=== PATIENT | male | born 1995 | race Caucasian/White ===

== ENCOUNTER 2016-08-01 13:12 | Emergency (ER) | payer BC, MEDICAID, SELFPAY ==
[~2016-08-01] VITALS: Ht 170.2 cm; Wt 63.5 kg
[2016-08-01] MEDS ORDERED: diphenhydrAMINE INJ 50MG/ML VIAL (J1200) IV STA (13:51)
--- NOTE | 2016-08-01 13:55 | ED PDOC ---
Post-Departure Follow-Up Patient presents with sudden onset of "feeling like I have the flu". Believes he heard a pop in his head and neck preceding symptoms. Most likely migraine headache as there is family history of same. Will obtain CT head as this is new to patient. Will check orthostatics due to complaint of dizziness and weakness. Medicating headache with NS bolus, toradol, benadryl and reglan. Neuro examination non-focal and symptoms only mild at this time. JIL DUFF. [facility] Aug 01, 2016 13:55
[2016-08-01] MEDS ORDERED: KETOROLAC 30 MG/ML VIAL (J1885) IV ONE (14:00)
[2016-08-01] MEDS ORDERED: NS 1,000 ML IV ONE (14:00)
[2016-08-01] MEDS ORDERED: METOCLOPRAMIDE INJ 10MG/2ML VIAL (J2765) IV ONE (14:00)
--- NOTE | 2016-08-01 14:15 | REP ---
CT Head without contrast HISTORY: Headache COMPARISON: None There is no intraparenchymal hemorrhage, acute infarct, mass or midline shift. The ventricular system is normal in appearance. There is no extra cerebral collection. There is no fracture. The visualized sinuses are clear. IMPRESSION: There is no intracranial lesion. Signed by James Troncoso MD 08/01/2016 02:06 P
--- NOTE | 2016-08-01 14:15 | ED PDOC ---
Post-Departure Follow-Up Patient advised of head CT results. Currently resting comfortably, on the phone with his mother JIL DUFF. [facility] Aug 01, 2016 14:15
--- NOTE | 2016-08-01 15:19 | ED PDOC ---
Post-Departure Follow-Up Patient reassessed. States sleepy but feels better. Awaiting ride home. Advised of discharge plans and worrisome signs to return to the ED for. JIL DUFF. [facility] Aug 01, 2016 15:19
[2016-08-01 15:25] VITALS: BP 110/60
== END 2016-08-01 15:42 | disposition home or self-care (01) ==
LOC: M ED 13:42
DX: R51 Headache (principal); R11.0 Nausea; R42 Dizziness and giddiness; F41.9 Anxiety disorder, unspecified; F17.200 Nicotine dependence, unspecified, uncomplicated; Z86.69 Personal history of other diseases of the nervous system and sense organs; Z82.5 Family history of asthma and other chronic lower respiratory diseases
CPT/HCPCS: 70450; 96361; 96374; 96375; 99284; J1200; J1885; J2765

== ENCOUNTER 2019-10-05 11:45 | Emergency (ER) | payer SELFPAY | END 2019-10-05 12:53 | disposition home or self-care (01) | LOC: M ED 11:45 | DX: S40.011A Contusion of right shoulder, initial encounter (principal); S46.911A Strain of unspecified muscle, fascia and tendon at shoulder and upper arm level, right arm, initial encounter; V86.96XA Unspecified occupant of dirt bike or motor/cross bike injured in nontraffic accident, initial encounter; Y93.9 Activity, unspecified; Y92.9 Unspecified place or not applicable; Y99.9 Unspecified external cause status; E10.9 Type 1 diabetes mellitus without complications; F17.200 Nicotine dependence, unspecified, uncomplicated; Z88.0 Allergy status to penicillin ==

== ENCOUNTER 2020-11-18 10:07 | Emergency (ER) | payer SELFPAY ==
[~2020-11-18] VITALS: Ht 170.2 cm; Wt 67.8 kg
[2020-11-18] MEDS ORDERED: dexameTHASONE 20MG/5ML VIAL (J1100 PER 1MG) IV ONE (12:20)
[2020-11-18] MEDS ORDERED: CLINDAMYCIN 600 MG in IV 1 EA IV ONE (12:20)
[2020-11-18] MEDS ORDERED: ISOVUE-370 76% 100ML VIAL As Ordered ONE (12:38)
[2020-11-18 12:40] LABS: BASO % 0.4 % (0.0-1.0); EOS # 0.3 10^3/uL (0.0-0.5); EOS % 3.4 % (0.0-3.0); HEMATOCRIT 47.4 % (42.0-52.0); HEMOGLOBIN 16.1 g/dl (13.5-17.5); LYMPH # 2.9 10^3/uL (1.5-5.0); LYMPH % 37.6 % (24.0-44.0); MEAN CORPUSCULAR HEMOGLOBIN 29.6 pg (27.0-33.0); MEAN CORPUSCULAR VOLUME 87.1 fl (80.0-96.0); MONO # 0.6 10^3/uL (0.0-0.8); MONO % 7.2 % (2.0-8.0); NEUTROPHILS # 3.9 10^3/uL (1.5-8.5); PLATELET COUNT, AUTOMATED 235 10^3/uL (150-450); RED BLOOD COUNT 5.44 10^6/uL (4.30-6.10); WHITE BLOOD COUNT 7.6 10^3/uL (4.0-10.0)
--- NOTE | 2020-11-18 13:04 | REP ---
INDICATION: jaw pain/dental issues. COMPARISON: None. TECHNIQUE: Helical scanning is acquired following the intravenous injection of 75 mL of Isovue 370. 3 mm axial images re-formatted. Coronal and sagittal MPR images are provided. FINDINGS: Preliminary digital graphic editor radiograph is unremarkable. Axial and reformatted images demonstrate multiple carious teeth bilaterally. Unerupted mandibular wisdom teeth are present bilaterally. No perimandibular or Mirella maxillary abscess is appreciated. No bony destructive lesion is seen. Submandibular and parotid glands are normal and symmetric. Tonsillar and peritonsillar soft tissues are unremarkable. The bony nasal septum bows slightly to the right without a septal beak. Nasal turbinates soft tissues are unremarkable. Nasal bone and inferior maxillary spine are intact. Zygomatic arches are unremarkable. The frontal sinuses are not developed. Ethmoid and sphenoid air cells are clear. The the right maxillary sinus is developmentally small compared to the left but clear. Mastoid aeration is normal and symmetric. There is an aerated mannie bullosa on the right and there is developmental narrowing of the ostium and infundibulum of the OMC on the right. No abnormality is noted at the temporomandibular joint on either side. IMPRESSION: Multiple carious teeth. No abscess seen. <Electronically signed by Jh Peña > 11/18/20 1300
[2020-11-18 13:05] LABS: ALBUMIN 4.3 GM/DL (3.2-5.2); ALT/SGPT 49 U/L (12-78); BILIRUBIN,DIRECT 0.1 MG/DL (0.0-0.2); BILIRUBIN,TOTAL 0.4 MG/DL (0.2-1.0); C REACTIVE PROTEIN QUANTITATIV < 0.30 MG/DL (0.00-0.30); LIPASE 92 U/L (73-393); TOTAL PROTEIN 7.9 GM/DL (6.4-8.2)
[2020-11-18] MEDS ORDERED: CLEO300C2 PO (13:16)
[2020-11-18 13:44] VITALS: BP 130/77
== END 2020-11-18 13:53 | disposition home or self-care (01) ==
LOC: M ED 10:07
DX: K04.7 Periapical abscess without sinus (principal); R68.84 Jaw pain; K08.89 Other specified disorders of teeth and supporting structures; K05.00 Acute gingivitis, plaque induced; F41.9 Anxiety disorder, unspecified; F10.10 Alcohol abuse, uncomplicated
CPT/HCPCS: 70487; 80047; 80076; 83690; 85025; 86140; 96365; 96375; 99283; J1100; Q9967

== ENCOUNTER 2021-04-05 12:28 | Emergency (ER) | payer SELFPAY ==
[~2021-04-05] VITALS: Ht 170.2 cm; Wt 68.2 kg
[~2021-04-05 12:28] MED LIST: CLEO300C2 PO
[2021-04-05 12:37] VITALS: BP 139/85
== END 2021-04-05 14:15 | disposition left against medical advice (07) ==
LOC: M ED 12:28 → EDBD 12:28 → M ED 14:15
DX: Z53.21 Procedure and treatment not carried out due to patient leaving prior to being seen by health care provider (principal)

== ENCOUNTER 2022-05-19 19:22 | Emergency (ER) | payer SELFPAY ==
[~2022-05-19] VITALS: Ht 170.2 cm; Wt 65.0 kg
[2022-05-19 19:52] LABS: BASO # 0.1 10^3/uL (0.0-0.2); BASO % 0.6 % (0.0-1.0); EOS # 0.3 10^3/uL (0.0-0.5); EOS % 2.8 % (0.0-3.0); HEMATOCRIT 51.5 % (42.0-52.0); LYMPH # 3.6 10^3/uL (1.5-5.0); LYMPH % 35.8 % (24.0-44.0); MEAN CORPUSCULAR HEMOGLOBIN 29.3 pg (27.0-33.0); MEAN CORPUSCULAR HGB CONC 34.2 g/dl (32.0-36.5); MEAN CORPUSCULAR VOLUME 85.8 fl (80.0-96.0); MONO # 0.4 10^3/uL (0.0-0.8); MONO % 4.1 % (2.0-8.0); NEUTROPHILS # 5.7 10^3/uL (1.5-8.5); NEUTROPHILS % 56.5 % (36.0-66.0); PLATELET COUNT, AUTOMATED 297 10^3/uL (150-450); WHITE BLOOD COUNT 10.1 10^3/uL (4.0-10.0)
[2022-05-19 19:55] LABS: HEMOGLOBIN 17.6 g/dl (13.5-17.5)
[2022-05-19 19:56] LABS: INR 0.81; PROTHROMBIN TIME 11.4 SECONDS (12.5-14.5)
[2022-05-19 20:20] LABS: ETHYL ALCOHOL (ETHANOL) 0.211 % (0.000-0.010)
[2022-05-19 20:21] LABS: ACETAMINOPHEN LEVEL < 2.0 UG/ML (10.0-20.0)
[2022-05-19 20:22] LABS: ALBUMIN 4.9 G/DL (3.2-5.2); ALKALINE PHOSPHATASE 83 U/L (46-116); ALT/SGPT 25 U/L (7.0-40); AST/SGOT 34 U/L (<34); BILIRUBIN,DIRECT < 0.1 MG/DL (<0.4); BILIRUBIN,TOTAL 0.3 MG/DL (0.3-1.2); BLOOD UREA NITROGEN 11 MG/DL (9-23); CALCIUM LEVEL 9.6 MG/DL (8.5-10.1); CARBON DIOXIDE LEVEL 27 MMOL/L (20-31); CHLORIDE LEVEL 105 MMOL/L (98-107); CREATININE FOR GFR 1.07 MG/DL (0.70-1.30); GLOMERULAR FILTRATION RATE > 60.0 (>60); GLUCOSE, FASTING 92 MG/DL (60-100); POTASSIUM SERUM 4.5 MMOL/L (3.5-5.1); SALICYLATE LEVEL < 3.0 MG/DL (<30); SODIUM LEVEL 142 MMOL/L (136-145); TOTAL PROTEIN 8.1 G/DL (5.7-8.2)
[2022-05-19 20:24] LABS: THYROID STIMULATING HORMONE 2.047 uIU/ML (0.55-4.78)
[2022-05-19 21:14] LABS: AMPHETAMINES LEVEL URINE NEGATIVE (NEGATIVE); BARBITURATES URINE NEGATIVE (NEGATIVE); BENZODIAZEPINES URINE NEGATIVE (NEGATIVE); CANNABINOIDS URINE NEGATIVE (NEGATIVE); COCAINE METABOLITE URINE NEGATIVE (NEGATIVE); METHADONE URINE NEGATIVE (NEGATIVE); OPIATES URINE NEGATIVE (NEGATIVE); PHENCYCLIDINE URINE NEGATIVE (NEGATIVE)
[2022-05-20 06:49] VITALS: BP 132/84
== END 2022-05-20 06:51 | disposition home or self-care (01) ==
LOC: M ED 19:22
DX: S06.0X9A Concussion with loss of consciousness of unspecified duration, initial encounter (principal); F10.129 Alcohol abuse with intoxication, unspecified; F41.8 Other specified anxiety disorders; Y04.8XXA Assault by other bodily force, initial encounter; Y92.410 Unspecified street and highway as the place of occurrence of the external cause; Z88.0 Allergy status to penicillin

== ENCOUNTER 2023-03-14 08:20 | Emergency (ER) | payer SELFPAY ==
[~2023-03-14] VITALS: Ht 170.2 cm; Wt 68.1 kg
[2023-03-14 08:20] VITALS: BP 148/86; TEMP 98.9; O2SAT 100
[2023-03-14] MEDS ORDERED: AZIT500T5 PO (08:27)
[2023-03-14 09:32] LABS: BASO % 0.2 % (0.0-1.0); EOS # 0.2 10^3/uL (0.0-0.5); HEMATOCRIT 50.1 % (42.0-52.0); HEMOGLOBIN 16.9 g/dl (13.5-17.5); LYMPH # 1.8 10^3/uL (1.5-5.0); LYMPH % 11.5 % (24.0-44.0); MEAN CORPUSCULAR HEMOGLOBIN 29.9 pg (27.0-33.0); MEAN CORPUSCULAR HGB CONC 33.7 g/dl (32.0-36.5); MEAN CORPUSCULAR VOLUME 88.7 fl (80.0-96.0); MONO # 1.4 10^3/uL (0.0-0.8); MONO % 8.8 % (2.0-8.0); NEUTROPHILS # 12.3 10^3/uL (1.5-8.5); NEUTROPHILS % 78.2 % (36.0-66.0); PLATELET COUNT, AUTOMATED 256 10^3/uL (150-450); RED BLOOD COUNT 5.65 10^6/uL (4.30-6.10); WHITE BLOOD COUNT 15.8 10^3/uL (4.0-10.0)
[2023-03-14 09:44] LABS: ERYTHROCYTE SEDIMENTATION RATE 23 mm/hr (0-15)
[2023-03-14 10:18] LABS: ALBUMIN 4.6 G/DL (3.2-5.2); ALKALINE PHOSPHATASE 85 U/L (46-116); ALT/SGPT 21 U/L (7.0-40); AST/SGOT 16 U/L (<34); BILIRUBIN,DIRECT 0.2 MG/DL (<0.4); BILIRUBIN,TOTAL 0.7 MG/DL (0.3-1.2); BLOOD UREA NITROGEN 11 MG/DL (9-23); CALCIUM LEVEL 10.2 MG/DL (8.5-10.1); CARBON DIOXIDE LEVEL 30 MMOL/L (20-31); CHLORIDE LEVEL 103 MMOL/L (98-107); CREATININE FOR GFR 1.07 MG/DL (0.70-1.30); GLOMERULAR FILTRATION RATE > 60.0 (>60); GLUCOSE, FASTING 98 MG/DL (60-100); POTASSIUM SERUM 4.5 MMOL/L (3.5-5.1); SODIUM LEVEL 137 MMOL/L (136-145); TOTAL PROTEIN 8.1 G/DL (5.7-8.2)
== END 2023-03-14 11:05 | disposition left against medical advice (07) ==
LOC: M ED 08:20
DX: Z53.21 Procedure and treatment not carried out due to patient leaving prior to being seen by health care provider (principal)

== ENCOUNTER → 2023-11-02 | Outpatient (REF) | payer SELFPAY ==
[~2023-11-02] MED LIST changes: +AZIT500T5 PO
== END ==
LOC: M WUC 19:01
PROVIDERS: ATTEND Registered Nurse
DX: J02.9 Acute pharyngitis, unspecified (principal); H10.9 Unspecified conjunctivitis